=== PATIENT | male | born 1995 | race Caucasian/White ===

== ENCOUNTER 2017-02-28 13:38 | Emergency (ER) | payer OTHER ==
[~2017-02-28] VITALS: Ht 175.2 cm; Wt 61.2 kg
[~2017-02-28 13:38] MED LIST: Motrin,Rufen800 MG PO; NKHM; ZOFRAN ODT4 MG SL
== END 2017-02-28 14:48 | disposition home or self-care (01) ==
LOC: ED 13:38
DX: L55.9 Sunburn, unspecified (principal); R03.0 Elevated blood-pressure reading, without diagnosis of hypertension; F17.200 Nicotine dependence, unspecified, uncomplicated; Z91.018 Allergy to other foods

== ENCOUNTER 2017-04-02 02:10 | Emergency (ER) | payer OTHER ==
[~2017-04-02] VITALS: Ht 175.2 cm; Wt 65.8 kg
== END 2017-04-02 03:16 | disposition home or self-care (01) ==
LOC: ED 02:10
DX: K04.01 Reversible pulpitis (principal); K02.9 Dental caries, unspecified; Z91.018 Allergy to other foods

== ENCOUNTER 2018-01-18 09:19 | Emergency (ER) | payer OTHER ==
[~2018-01-18] VITALS: Ht 170.1 cm; Wt 68.0 kg
[2018-01-18] MEDS ORDERED: NAPROSYN500 MG PO (09:26)
== END 2018-01-18 11:19 | disposition home or self-care (01) ==
LOC: ED 09:19
DX: S62.635A Displaced fracture of distal phalanx of left ring finger, initial encounter for closed fracture (principal); F17.200 Nicotine dependence, unspecified, uncomplicated; F10.10 Alcohol abuse, uncomplicated; Z91.018 Allergy to other foods; W17.89XA Other fall from one level to another, initial encounter; Y93.67 Activity, basketball; Y92.89 Other specified places as the place of occurrence of the external cause; Y99.8 Other external cause status

== ENCOUNTER → 2019-01-13 | Outpatient (CLI) | payer BC ==
[~2019-01-13] MED LIST changes: +NAPROSYN500 MG PO
== END | disposition home or self-care (01) ==
LOC: RAD 15:47
DX: M79.89 Other specified soft tissue disorders (principal)

== ENCOUNTER → 2019-02-16 | Outpatient (CLI) | payer BC | END | disposition home or self-care (01) | LOC: ORTHO 00:54 | DX: S62.337D Displaced fracture of neck of fifth metacarpal bone, left hand, subsequent encounter for fracture with routine healing (principal); X58.XXXD Exposure to other specified factors, subsequent encounter ==

== ENCOUNTER → 2021-09-03 | Outpatient (CLI) | payer BC | LOC: COVID19 15:15 | PROVIDERS: ATTEND Internal Medicine | DX: U07.1 COVID-19 (principal) ==